=== PATIENT | male | born 1985 | race Caucasian/White ===

== ENCOUNTER 2019-09-18 16:53 | Emergency (ER) | payer SELFPAY ==
[2019-09-18 16:56] VITALS: BP 142/64; PULSE 61; RESP 20; TEMP 36.9; BMI 27.3
--- NOTE | 2019-09-18 17:06 | HMH.COUGH ---
Cough Clinic HPI - History of Present Illness Complaint:: Smokers cough, was sent home from work HPI:: The patient was sent home from work today with a cough. His cough is mild and he attributes it to his smoking. He has had no fever. His cough is been only slightly more productive than his usual. He has had a little bit of GI distress after eating some corndogs earlier today. He has no travel history that would be at risk for Covid 19. His family is well. Home Medications: Home Medications Medication Instructions Recorded Confirmed Type No Known Home Medications 09/18/19 09/18/19 History Allergies/Adverse Reactions: Allergies Allergy/AdvReac Type Severity Reaction Status Date / Time No Known Allergies Allergy Verified 09/18/19 16:55 [facility] Triage - Symptoms Fever History: No Chills: No Myalgia: Yes Nasal Drainage: No Sore Throat: No Productive Cough: Yes Non-productive Cough: No Ear or Sinus Pain: No Joint Pain: No Chest Pain: Yes (tightness) Rash: No Shortness of Breath: Yes Nausea or Vomitting: No Headache: No Abdominal Pain: Yes Diarrhea: Yes - Exposure History Foreign Travel: No ([place]) Direct Contact with COVID-19 Patient: No - Risk Factors Greater than 60 Years Old: No COPD: No Diabetes: No Heart Disease: No Home Oxygen Use: No Chronic Renal Disease: No Chronic Liver Disease: No Neurologic/Neurodevelopmental/intellectual disability: No Other Chronic Diseases: No Current Smoker: Yes Former Smoker: No [facility] History I have reviewed the patient's past medical history: Yes Other Surgeries: Yes: Appendectomy - Social History Smoking Status: Current every day smoker Tobacco Type: cigarettes # Packs/Day (cigarettes): 1 Alcohol Intake: never Occupational Status: employed Family Hx:: No significant family history - Eyes Eyes: Reports system reviewed and no additional complaints, except as docu - ENT Ears, Nose, Mouth, and Throat: Reports system reviewed and no additional complaints, except as docu - Cardiovascular Cardiovascular: Reports system reviewed and no additional complaints, except as docu - Gastrointestinal Gastrointestingal: Denies: abdominal pain, change in bowel habits [facility] Exam - General General appearance: alert, in no apparent distress - Head Head exam: normocephalic - Eye Eye exam: Present: PERRL - ENT ENT exam: Present: normal oropharynx - Chest Chest inspection: Present: normal inspection - Respiratory Respiratory exam: Present: normal lung sounds bilaterally (Slightly diminished). Absent: wheezes - Cardiovascular Cardiovascular exam: Present: regular rate, normal heart sounds - Abdominal Exam Abdominal exam: Present: soft. Absent: tenderness - Neurological Exam Neurological exam: Present: alert, oriented X3 - Skin Skin exam: Present: warm, dry, intact, normal color [facility] MDM Vital Signs: 09/18/19 16:56 Temperature 98.5 F Temperature Source Oral Pulse Rate [Left Brachial] 61 Respiratory Rate 20 Blood Pressure [Left Arm] 142/64 H Blood Pressure Mean [Left Arm] 90 Blood Pressure Source [Left Arm] Automatic Cuff Blood Pressure Position [Left Arm] Sitting Orders (Tests/Meds): ORDERS Category Date Time Status Complete Blood Count Auto Diff Stat Lab 09/18/19 17:04 Ordered Cough Clinic Disposition Clinical Impression: Cough, Tobacco abuse Disposition: Home, Self-Care Additional Instructions: Reassurance. Counseled against smoking. OTC Prilosec suggested for GI distress. Follow-up as needed Referrals: Provider,Referral, [Primary Care Provider] -
[2019-09-18 17:15] LABS: Hematocrit 43.1 % (42.0-52.0); Hemoglobin 14.1 g/dL (14.1-18.0); Mean Corpuscular HGB Conc 32.8 g/dL (31.8-35.4); Mean Corpuscular Volume 91.4 fl (80-94); Mean Platelet Volume 8.6 fl (7.4-10.4); Platelet Count 209 K/mm3 (142-424); Red Blood Count 4.71 M/mm3 (4.60-6.20); Red Cell Distribution Width 13.2 % (11.5-17.5); White Blood Count 7.7 K/mm3 (4.8-10.8)
[2019-09-18 17:16] LABS: Basophils # 0.1 K/mm3 (0-0.2); Basophils % 0.8 % (0.1-2.0); Eosinophils # 0.2 K/mm3 (0.0-0.4); Lymphocytes # 2.5 K/mm3 (0.7-4.5); Monocytes # 0.5 K/mm3 (0.1-1.0); Neutrophils # 4.4 K/mm3 (1.8-7.8); Neutrophils % 57.1 % (37.0-80.0)
[2019-09-18 17:31] VITALS: BP 142/64; PULSE 61; RESP 20; TEMP 36.9; O2SAT 98
== END 2019-09-18 17:31 | disposition home or self-care (01) ==
PROVIDERS: Emergency Provider Family Medicine
DX: R05 Cough (principal); F17.210 Nicotine dependence, cigarettes, uncomplicated; Z90.49 Acquired absence of other specified parts of digestive tract
CPT/HCPCS: 36415; 85025; 99201; 99213

== ENCOUNTER → 2021-06-15 12:00 | Outpatient (CLI) | payer MEDICAID, SELFPAY | PROVIDERS: Visit Provider Nurse Practitioner | DX: U07.1 COVID-19 (principal) | CPT/HCPCS: C9803; U0003; U0005 ==

== ENCOUNTER 2021-09-05 20:28 | Emergency (ER) | payer SELFPAY ==
[2021-09-05 20:29] VITALS: BP 122/72; PULSE 79; RESP 16; TEMP 36.7; O2SAT 98; BMI 28.5
[2021-09-05 21:00] VITALS: BP 115/62; PULSE 64; O2SAT 96
--- NOTE | 2021-09-05 21:00 | CT_ITS ---
PROCEDURE INFORMATION: Exam: CT Abdomen And Pelvis With Contrast Exam date and time: 09/05/2021 9:12 PM Age: 36 years old Clinical indication: Abdominal pain; Additional info: Upper quad abd pain TECHNIQUE: Imaging protocol: Computed tomography of the abdomen and pelvis with contrast. Radiation optimization: All CT scans at this facility use at least one of these dose optimization techniques: automated exposure control; mA and/or kV adjustment per patient size (includes targeted exams where dose is matched to clinical indication); or iterative reconstruction. Contrast material: ISOVUE; Contrast volume: 75 ml; Contrast route: IV; COMPARISON: No relevant prior studies available. FINDINGS: Liver: Mild hepatomegaly. Gallbladder and bile ducts: Normal. Pancreas: Normal. Spleen: Splenic calcifications, compatible with prior granulomatous disease. Mild splenomegaly. Adrenal glands: 10 mm benign left adrenal adenoma. Kidneys and ureters: Normal. Stomach and bowel: Several loops of nondilated, gas and fluid-filled small bowel, which is a nonspecific finding, but can be seen with enteritis. Appendix: No evidence of appendicitis. Intraperitoneal space: Unremarkable. No free air. No significant fluid collection. Vasculature: Unremarkable. No abdominal aortic aneurysm. Lymph nodes: Unremarkable. No enlarged lymph nodes. Urinary bladder: Unremarkable as visualized. Reproductive: Unremarkable as visualized. Bones/joints: No acute abnormality. Soft tissues: Normal. IMPRESSION: Several loops of nondilated, gas and fluid-filled small bowel, which is a nonspecific finding, but can be seen with enteritis. COMMENTS: Consistent with the [employer]'s Incidental Findings Committee white paper (J Am Noemi Radiol 2017): Any incidental adrenal lesion less than or equal to 1 cm is likely benign. No follow-up imaging is recommended for these lesions per consensus recommendations based on imaging criteria. Further lab evaluation could be pursued if warranted based on clinical findings.
[2021-09-05 21:15] LABS: Coronavirus 19, PCR Not Detected (NotDetected); Influenza B, PCR Not Detected (NotDetected); Microscopic, Urine URINE MICROSCOPIC (MICROSCOPIC)
--- NOTE | 2021-09-05 21:18 | HMH.EDURI ---
ED Disposition Clinical Impression: Influenza Disposition: Home, Self-Care Condition on Discharge: Good Instructions: DI for H1N1 Influenza -- Adult Additional Instructions: fluids and use meds and see pcp for follow up Prescriptions: Oseltamivir Phosphate [Tamiflu 75mg Capsule] 75 mg PO BID #10 cap Transmission Status: Pending to [facility] Ondansetron [Zofran 4mg ODT] 4 mg PO TIDP PRN #15 tab PRN Reason: Nausea And Vomiting Transmission Status: Pending to [facility] Referrals: Provider,Referral, [Primary Care Provider] - - Critical Care Critical Care Time: No Attestation: On 09/05/21, the high probability of a clinically significant, sudden or life threatening deterioration of the following system(s) required my full and direct attention, intervention and personal management. The time I documented below is in addition to time spent performing reported procedures but includes the following listed in this critical care notation. Medical Decision Making - Medical Records Medical records reviewed: Yes: I reviewed the patient's medical records. - Gilbert Inquiry Pt receiving controlled substance: No Vital Signs: 09/05/21 20:29 Temperature 98.0 F Temperature Source Oral Pulse Rate [Right Radial] 79 Respiratory Rate 16 Blood Pressure [Right Arm] 122/72 Blood Pressure Mean [Right Arm] 88 Blood Pressure Source [Right Arm] Automatic Cuff Blood Pressure Position [Right Arm] Sitting 02 Sat by Pulse Oximetry 98 Oxygen Delivery Method Room Air - Lab Data Lab results reviewed: Yes: I reviewed the patient's lab results. Lab Results 09/05/21 20:30: Urine Color Yellow, Urine Appearance Clear, Urine pH 6.0, Ur Specific [place] >= 1.030, Urine Protein Negative, Urine Glucose (UA) Negative, Urine Ketones Negative, Urine Blood Negative, Urine Nitrate Negative, Urine Bilirubin Negative, Urine Urobilinogen 0.2, Ur Leukocyte Esterase Negative, Urine WBC Occasional, Urine Bacteria Trace, Urine Mucus 1+ 09/05/21 20:30: WBC 5.0, RBC 4.76, Hgb 14.8, Hct 43.9, MCV 92.2, MCH 31.0, MCHC 33.6, RDW 13.7, Plt Count 217, MPV 8.6, Neut % (Auto) 72.8, Lymph % (Auto) 16.9, Camp % (Auto) 7.3, Eos % (Auto) 1.1, Baso % (Auto) 1.9, Neut # (Auto) 3.6, Lymph # (Auto) 0.9, Camp # (Auto) 0.4, Eos # (Auto) 0.1, Baso # (Auto) 0.1, ESR 7 09/05/21 20:30: Sodium 138, Potassium 3.9, Chloride 109 H, Carbon Dioxide 26, Anion Gap 6.9, BUN 9, Creatinine 0.70, Estimated Creat Clear 198, Estimated GFR 128, Est GFR ( Amer) 155, Glucose 103 H, Calcium 8.6, Total Bilirubin 0.3, AST 32, ALT 48, Alkaline Phosphatase 91, C-Reactive Protein 17.0 H, Total Protein 6.7, Albumin 4.0, Globulin 2.7, Albumin/Globulin Ratio 1.5, Amylase 64, Lipase 72 09/05/21 20:30: SARS-CoV-2 (PCR) Not detected, Influenza A Untype (PCR) Detected A, Influenza Type B (PCR) Not detected Result diagrams: 09/05/21 20:30 09/05/21 20:30 Orders (Tests/Meds): ED MEDICATIONS Generic Name Dose Route Start Last Admin Trade Name Freq PRN Reason Stop Dose Admin Lactated Ringer's 1,000 mls @ 999 mls/hr 09/05/21 21:00 09/05/21 21:37 Lactated Ringer's 1000 Ml Bag IV 09/05/21 22:00 999 mls/hr .Q1H1M KAREN Administration Lactated Ringer's 1,000 mls @ 999 mls/hr 09/05/21 21:45 09/05/21 22:02 Lactated Ringer's 1000 Ml Bag IV 09/05/21 22:45 999 mls/hr .Q1H1M KAREN Administration Sodium Chloride 8 ml 09/05/21 20:59 Sodium Chloride 0.9% 10ml Vial IV 10/05/21 20:58 NEEDED PRN dilute pepcid Discontinued Medications Generic Name Dose Route Start Last Admin Trade Name Freq PRN Reason Stop Dose Admin Famotidine 20 mg 09/05/21 20:59 09/05/21 21:37 Famotidine 20mg/2ml Vial IV 09/05/21 21:00 20 mg ONCE ONE Administration Iopamidol 75 ml 09/05/21 21:16 09/05/21 21:17 Iopamidol-370 (76%);100ml Bottle IV 09/05/21 21:17 75 ml ONCE ONE Administration Metoclopramide HCl 10 mg 09/05/21 20:59
[2021-09-05 21:19] LABS: Appearance,Urine CLEAR (Clear); Basophils # 0.1 K/mm3 (0-0.2); Basophils % 1.9 % (0.1-2.0); Bilirubin,Urine Negative (Negative); Blood, Urine Negative (Negative); Color,Urine YELLOW (Yellow); Eosinophils # 0.1 K/mm3 (0.0-0.4); Eosinophils % 1.1 % (0.1-12.0); Glucose,Urine (UA) Negative (Negative); Hematocrit 43.9 % (42.0-52.0); Hemoglobin 14.8 g/dL (14.1-18.0); Ketones,Urine Negative (Negative); Leukocyte Esterase,Urine Negative (Negative); Lymphocytes # 0.9 K/mm3 (0.7-4.5); Lymphocytes % 16.9 % (10-50); Mean Corpuscular HGB Conc 33.6 g/dL (31.8-35.4); Mean Corpuscular Volume 92.2 fl (80-94); Mean Platelet Volume 8.6 fl (7.4-10.4); Monocytes # 0.4 K/mm3 (0.1-1.0); Monocytes % 7.3 % (1.7-9.3); Neutrophils # 3.6 K/mm3 (1.8-7.8); Neutrophils % 72.8 % (37.0-80.0); Nitrate,Urine Negative (Negative); Platelet Count 217 K/mm3 (142-424); Protein,Urine Negative (Negative); Red Blood Count 4.76 M/mm3 (4.60-6.20); Red Cell Distribution Width 13.7 % (11.5-17.5); Specific Gravity, Urine >= 1.030 (1.005-1.030); Urobilinogen,Urine 0.2 EU/dl (0.2)
[2021-09-05 21:22] LABS: Alanine Aminotransferase 48 U/L (12-78); Albumin/Globulin Ratio 1.5 (1.1-1.8); Alkaline Phosphatase 91 U/L (38-126); Amylase 64 U/L (30-110); Anion Gap 6.9 mEq/L (5-15); Aspartate Amino Transferase 32 U/L (17-59); Bilirubin,Total 0.3 mg/dl (0.2-1.3); Blood Urea Nitrogen 9 mg/dl (9-20); Calcium 8.6 mg/dl (8.4-10.2); Carbon Dioxide 26 mmol/L (22.0-30.0); Chloride 109 mmol/L (98-107); Creatinine Clearance Estimated 198 mL/min (50-200); Estimated Glomerular Filt Rate 128 ml/min (>60); GFR (African American) 155 ML/MIN (>60); Globulin 2.7 g/dL (1.3-3.2); Glucose 103 mg/dl (74-100); Lipase 72 U/L (23-300); Potassium 3.9 mmoL/L (3.5-5.1); Sodium 138 mmol/L (136-145); Total Protein,Serum 6.7 g/dl (6.3-8.2)
[2021-09-05 21:44] LABS: Bacteria,Urine Trace /lpf; Mucus,Urine 1+ /lpf; WBC,Urine Occasional #/hpf (0-3)
[2021-09-05 21:50] LABS: Influenza A, PCR Detected (NotDetected)
[2021-09-05 21:51] LABS: Erythrocyte Sedimentation Rate 7 mm/hr (0-15)
[2021-09-05 22:03] VITALS: BP 100/61; PULSE 77; O2SAT 100
[2021-09-05 22:28] VITALS: BP 111/54; PULSE 66; PULSE 76; RESP 12; TEMP 36.6; O2SAT 98
== END 2021-09-05 23:04 | disposition home or self-care (01) ==
PROVIDERS: Emergency Provider Emergency Medicine
DX: J10.1 Influenza due to other identified influenza virus with other respiratory manifestations (principal); F17.210 Nicotine dependence, cigarettes, uncomplicated; Z20.822 Contact with and (suspected) exposure to COVID-19
CPT/HCPCS: 74177; 80053; 81001; 82150; 83690; 85025; 85651; 86140; 96361; 96365; 96367; 96374; 96375; 99285; C9803; Q9967; U0003; U0005

== ENCOUNTER 2021-10-07 19:09 | Emergency (ER) | payer SELFPAY ==
[2021-10-07 19:21] VITALS: BP 120/68; PULSE 68; RESP 21; TEMP 36.8; O2SAT 97; BMI 25.1
[2021-10-07 20:18] VITALS: BP 120/68; PULSE 68; RESP 21; TEMP 36.8; O2SAT 97
--- NOTE | 2021-10-07 20:36 | HMH.EDUTC ---
[facility] Disposition Clinical Impression: Otitis media Qualifiers: Otitis media type: unspecified Laterality: left Qualified Code(s): H66.92 - Otitis media, unspecified, left ear Disposition: Home, Self-Care Condition on Discharge: Good Instructions: Vertigo, Middle Ear Infection, DI for Fatigue Additional Instructions: Take medication as prescribed Make sure to drink plenty of gatoraid and pedialyte to help replace lost fluids from sweating Return if needed Straight to ER if any life threatening symptoms Follow up with your Family Doctor if no improvement Prescriptions: Meclizine HCl [Meclizine 25mg Tab] 25 mg PO Q8HP PRN #10 tab PRN Reason: Dizziness Transmission Status: Pending to [facility] Amoxicillin [Amoxicillin 875MG Tab] 875 mg PO Q12H #20 tab Transmission Status: Pending to [facility] methylPREDNISolone [Medrol 4mg tab] 4 mg PO DIRECTED #21 tab Transmission Status: Pending to [facility] Referrals: Provider,Referral, MD [Primary Care Provider] - As needed Forms: Work/School Release Time of Disposition: 20:46 Medical Decision Making - Gilbert Inquiry Pt receiving controlled substance: No Gilbert was queried for this patient: No Vital Signs: 10/07/21 19:21 10/07/21 20:18 Temperature 98.3 F 98.3 F Temperature Source Oral Pulse Rate 68 Pulse Rate [Right Brachial] 68 Respiratory Rate 21 21 Blood Pressure 120/68 Blood Pressure [Right Arm] 120/68 Blood Pressure Mean [Right Arm] 85 Blood Pressure Source [Right Arm] Automatic Cuff Blood Pressure Position [Right Arm] Sitting 02 Sat by Pulse Oximetry 97 Oxygen Delivery Method Room Air [facility] HPI - General Stated complaint: light headed Time Seen by Provider: 10/07/21 20:36 Mode of Arrival: Ambulatory Source of Information: Patient Limitations: No Limitations Description of Symptoms (Recalled from Triage Doc. by RN): PATIENT C/O DIZZINESS, DECREASED ENERGY, AND SOA HEENT Symptoms (Recalled from RN notes): No Resp Symptoms (Recalled from RN notes): Yes Skin Symptoms (Recalled from RN notes): No MS Symptoms (Recalled from RN notes): No Functional Status (Recalled from RN notes): WNL - History of Present Illness Provider Complaint: Patient states that he has been having ear pain and pressure State that he was at work last night and got hot and said that he felt dizzy, hot and flush and had to sit down State that he went home and felt better today when he woke up but his ear was still throbbing and felt full so he came in - Related Data Previous Rx's Medication Instructions Recorded Amoxicillin [Amoxicillin 875MG 875 mg PO Q12H #20 tab 10/07/21 Tab] Meclizine HCl [Meclizine 25mg Tab] 25 mg PO Q8HP PRN #10 tab 10/07/21 methylPREDNISolone [Medrol 4mg 4 mg PO DIRECTED #21 tab 10/07/21 tab] Allergies Allergy/AdvReac Type Severity Reaction Status Date / Time No Known Allergies Allergy Verified 09/18/19 16:55 - Worker's Comp Is this a Worker's Comp case?: No [facility] History - Hepatitis A Screen Attestation statement:: This patient has been screened for Hepatitis A risk factors. I have reviewed the patient's past medical history: Yes Other Surgeries: Yes: Appendectomy - Social History Smoking Status: Current every day smoker Tobacco Type: cigarettes # Packs/Day (cigarettes): 1 Alcohol Intake: never Occupational Status: other Family Hx:: No significant family history ROS Obtained: Yes All systems reviewed & no additional complaints, Yes Systems reviewed as appropriate & no additional complaints - Constitutional Constitutional: Reports system reviewed and no additional complaints, except as docu, Reports fatigue - ENT Ears, Nose, Mouth, and Throat: Reports system reviewed and no additional complaints, except as docu, Reports dizziness, Reports otalgia - Cardiovascular Cardiovascular: Reports system reviewed and no additional complaints, except as
== END 2021-10-07 21:08 | disposition home or self-care (01) ==
PROVIDERS: Emergency Provider Nurse Practitioner
DX: H66.92 Otitis media, unspecified, left ear (principal); F17.210 Nicotine dependence, cigarettes, uncomplicated
CPT/HCPCS: 99212; G0463

== ENCOUNTER 2021-10-19 21:33 | Emergency (ER) | payer OTHER, SELFPAY ==
[2021-10-19 21:34] VITALS: BP 155/77; PULSE 82; RESP 17; TEMP 37.1; O2SAT 98; BMI 26.4
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
[2021-10-19 23:45] VITALS: BP 138/78; PULSE 60; RESP 18; TEMP 36.7; O2SAT 98
== END 2021-10-19 23:50 | disposition home or self-care (01) ==
PROVIDERS: Emergency Provider Emergency Medicine
DX: T22.611A Corrosion of second degree of right forearm, initial encounter (principal); X08.8XXA Exposure to other specified smoke, fire and flames, initial encounter; Y92.63 Factory as the place of occurrence of the external cause; Y99.0 Civilian activity done for income or pay
CPT/HCPCS: 99283

== ENCOUNTER 2022-04-05 09:28 | Emergency (ER) | payer OTHER, SELFPAY ==
[2022-04-05 09:30] VITALS: BP 137/79; PULSE 83; RESP 17; TEMP 36.8; O2SAT 99; BMI 28.0
--- NOTE | 2022-04-05 09:42 | EXP.UTC ---
Discharge Plan Disposition Patient Disposition: Home, Self-Care Condition: Good Prescriptions Prescriptions: New amoxicillin [amoxicillin] 875 mg tablet 875 mg PO Q12H Qty: 20 0RF benzonatate [benzonatate] 100 mg capsule 100 mg PO TIDP PRN (Reason: Cough) Qty: 30 0RF methylprednisolone 4 mg Tablets,Dose Pack 4 mg PO DIRECTED Qty: 21 0RF No Action methylprednisolone 4 MG tablet 4 mg PO DIRECTED Qty: 21 0RF Rx Instructions: Take as directed on package instructions amoxicillin 875 MG tablet 875 mg PO Q12H Qty: 20 0RF meclizine 25 MG tablet,chewable 25 mg PO Q8HP PRN (Reason: Dizziness) Qty: 10 0RF Referrals Follow up/Referrals: Provider,Referral, MD [Primary Care Provider] - See instructions Activity Restrictions/Add. Instructions Additional Instructions/Restrictions: Drink plenty of fluids. Take tylenol or ibuprofen for pain or fever. Take the medications as directed. Follow up with your regular doctor. GO TO THE ER FOR ANY WORSENING SYMPTOMS Clinical Impressions Clinical Impression: Otitis media, Sinusitis Stand Alone Forms Stand Alone Forms: Work/School Release Instructions Patient Instructions: Sinusitis, Middle Ear Infection, DI for Sinusitis Discharge ED Provider: Dima Malagon [facility] General Stated complaint: Vomitting, light headed Time Seen by Provider: 04/05/22 09:42 History of Present Illness Provider Complaint: He states that for the past 2 days he has had intermittent dizziness when turning his head or leaning over. He has had bilateral ear pain at times. He is having sinus congestion and bilateral ear pain. Related Data Previous Rx's Medication Instructions Recorded amoxicillin 875 mg tablet 875 mg PO Q12H #20 tabs 10/07/21 meclizine 25 mg chewable tablet 25 mg PO Q8HP PRN Dizziness #10 10/07/21 tabs methylprednisolone 4 mg tablet 4 mg PO DIRECTED #21 tabs 10/07/21 amoxicillin 875 mg tablet 875 mg PO Q12H #20 tabs 04/05/22 benzonatate 100 mg capsule 100 mg PO TIDP PRN Cough #30 caps 04/05/22 methylprednisolone 4 mg tablets in 4 mg PO DIRECTED #21 tabs 04/05/22 a dose pack Allergies Allergy/AdvReac Type Severity Reaction Status Date / Time No Known Allergies [facility]ergy Ver[facility] 09/18[facility]19 16:55 [facility] Social History Smoking Status: Current every day smoker tobacco type: cigarettes packs per day: 1 alcohol intake: never current occupational status: other Travel in the last 8 weeks: None ROS Obtained: Yes All systems reviewed & no additional complaints except as documented Constitutional Constitutional: Denies chills, Reports fever(s) and Reports poor appetite Eyes Eyes: Denies eye discharge ENT Ears, Nose, Mouth, and Throat: Denies ear discharge, Reports otalgia, Denies hearing loss, Denies sinus pain and Reports sore throat Cardiovascular Cardiovascular: Denies chest pain and Denies dyspnea Respiratory Respiratory: Denies chest congestion, Reports cough and Denies dyspnea Gastrointestinal Gastrointestingal: Denies abdominal pain, diarrhea, nausea or vomiting Musculoskeletal Musculoskeletal: Denies arthralgias Integumentary/Breasts Skin/Breast: Denies rash Physical Exam General General appearance: alert and in no apparent distress Head Head exam: atraumatic, normocephalic and normal inspection Eye Eye exam: Present normal appearance; Absent PERRL or EOMI ENT ENT exam: Present mucous membranes moist and normal external ear exam Expanded ENT Exam TM/Canal exam: Bilateral TM: erythema, bulging and effusion Nose exam: Absent sinus tenderness Nasal speculum exam: Bilateral: normal Mouth exam: Present normal external inspection and other; Absent drooling Teeth exam: Present normal inspection Throat exam: Present tonsillar erythema and tonsillomegaly Neck Neck exam: Present normal inspection, full ROM and trachea midline; Absent tenderness, meni
[2022-04-05 09:55] LABS: UTC Influenza A Antigen Negative (Negative); UTC Strep Screen (Rapid) Negative (Negative)
[2022-04-05 09:56] LABS: UTC Influenza B Antigen Negative (Negative)
[2022-04-05 10:13] VITALS: BP 130/78; PULSE 80; RESP 18; TEMP 36.8; O2SAT 99
== END 2022-04-05 10:14 | disposition home or self-care (01) ==
PROVIDERS: Emergency Provider Nurse Practitioner Family
DX: H66.90 Otitis media, unspecified, unspecified ear (principal); J32.9 Chronic sinusitis, unspecified
CPT/HCPCS: 87804; 87880; 99212; G0463

== ENCOUNTER 2022-06-23 14:34 | Emergency (ER) | payer OTHER, SELFPAY ==
--- NOTE | 2022-06-23 14:39 | EXP.UTC ---
Discharge Plan Disposition Patient Disposition: Home, Self-Care Condition: Good Prescriptions Prescriptions: New ibuprofen [IBU] 800 mg tablet 800 mg PO Q8HP PRN (Reason: Moderate Pain) Qty: 30 0RF Referrals Follow up/Referrals: Dragan Montenegro JR, MD [Physician] - See instructions Provider,MD Katherine [Primary Care Provider] - See instructions Activity Restrictions/Add. Instructions Additional Instructions/Restrictions: Rest the extremity, Wear the ariela wrap for compression, Elevate the extremity as tolerated while you are resting. Take ibuprofen for pain. I sent in a prescription to your pharmacy. Follow up with Dr. Montenegro (orthopedics). I put in a referral but you need to call his office and schedule an appointment. Follow up with your regular doctor. GO TO THE ER FOR ANY WORSENING SYMPTOMS Clinical Impressions Clinical Impression: Left knee pain Stand Alone Forms Stand Alone Forms: Work/School Release Instructions Patient Instructions: DI for Knee Pain Discharge ED Provider: Dima Malagon [facility] General Stated complaint: LT knee pain Time Seen by Provider: 06/23/22 14:39 History of Present Illness Provider Complaint: He states that he has had left knee pain for the past 3 days. He states that he stepped down off of something and the knee kind of twisted and then his pain began. Related Data Previous Rx's Medication Instructions Recorded ibuprofen 800 mg tablet (IBU) 800 mg PO Q8HP PRN Moderate Pain 06/23/22 #30 tabs Allergies Allergy/AdvReac Type Severity Reaction Status Date / Time No Known Allergies Allergy Verified 09/18/19 16:55 [facility] Disclaimer: The information contained in this section may have been updated after the patient was seen, as this information can be updated by other users. Surgical History History of appendectomy Social History Smoking Status: Current every day smoker tobacco type: cigarettes packs per day: 1 alcohol intake: never current occupational status: other Travel in the last 8 weeks: None ROS Obtained: Yes All systems reviewed & no additional complaints except as documented Constitutional Constitutional: Denies chills and Denies fever(s) Musculoskeletal Musculoskeletal: Reports as per HPI Integumentary/Breasts Skin/Breast: Denies redness, Denies rash and Denies wounds Neurologic Neurologic: Denies paresthesias Physical Exam General General appearance: alert and in no apparent distress Head Head exam: atraumatic, normocephalic and normal inspection Eye Eye exam: Present normal appearance, PERRL and EOMI ENT ENT exam: Present normal exam, normal oropharynx, mucous membranes moist, TM's normal bilaterally and normal external ear exam Neck Neck exam: Present normal inspection, full ROM and trachea midline; Absent meningismus or lymphadenopathy Chest Chest inspection: Present normal inspection and symmetric chest wall rise; Absent tenderness Respiratory Respiratory exam: Present normal lung sounds bilaterally; Absent respiratory distress Cardiovascular Cardiovascular exam: Present regular rate and normal rhythm; Absent JVD Abdominal Exam Abdominal exam: Present soft and normal bowel sounds; Absent distention, tenderness or guarding Extremities Exam Extremities exam: Present normal capillary refill; Absent calf tenderness Expanded Lower Extremity Exam Left: Hip/Pelvis exam: Present normal inspection and full ROM; Absent tenderness Upper leg exam: Present normal inspection and full ROM; Absent tenderness Knee exam: Present full ROM, tenderness, swelling and knee extension intact; Absent abrasion, laceration, ecchymosis, deformity, crepitus, dislocation, erythema, effusion, anterior drawer sign, posterior draw sign, pain with valgus, laxity with valgus, pain with varus or laxity with varus Lowe
[2022-06-23 14:40] VITALS: BP 135/83; PULSE 67; RESP 20; TEMP 36.6; O2SAT 96; BMI 25.7
--- NOTE | 2022-06-23 14:45 | XR_ITS ---
FINAL REPORT CLINICAL HISTORY: pain for months. no injury or trauma. FINDINGS: LEFT KNEE: Four views of the left knee were obtained. There is no acute fracture or dislocation. Visualized joint spaces are normally aligned. There is no joint effusion. Soft tissues are unremarkable. IMPRESSION: No acute bony abnormality. Reviewed, Interpreted and Dictated by Sahil Dove III, MD Transcribed by Gris Corbin Authenticated and [facility]
[2022-06-23 15:07] VITALS: BP 135/83; PULSE 67; RESP 20; TEMP 36.6; O2SAT 96
== END 2022-06-23 16:07 | disposition home or self-care (01) ==
PROVIDERS: Emergency Provider Nurse Practitioner Family
DX: M25.562 Pain in left knee (principal); W18.40XA Slipping, tripping and stumbling without falling, unspecified, initial encounter
CPT/HCPCS: 73562; 99212; G0463

== ENCOUNTER 2023-03-02 11:36 | Emergency (ER) | payer OTHER, SELFPAY ==
--- NOTE | 2023-03-02 12:16 | EXP.UTC ---
Discharge Plan Disposition Patient Disposition: Home, Self-Care Condition: Good Prescriptions Prescriptions: New amoxicillin 875 mg tablet 875 mg PO BID Qty: 20 0RF meclizine 12.5 mg tablet 12.5 mg PO TID PRN (Reason: dizziness/nausea) Qty: 30 0RF No Action ibuprofen [IBU] 800 mg tablet 800 mg PO Q8HP PRN (Reason: Moderate Pain) Qty: 30 0RF Referrals Follow up/Referrals: Provider,Referral, MD [Primary Care Provider] - See instructions Clinical Impressions Clinical Impression: Otitis media, Vertigo Stand Alone Forms Stand Alone Forms: Work/School Release Instructions Patient Instructions: DI for Otitis Media (Middle Ear Infection)-Child Discharge ED Provider: Aubree Obando [facility] [place] HPI General Stated complaint: nausea, dizziness, diarrhea ear pain Time Seen by Provider: 03/02/23 12:37 History of Present Illness Provider Complaint: Woke up early this am with nausea, dizziness, feels off balance. Right ear pain. Has taken Zofran, Pepto so has had no vomiting or diarrhea but still feels off. Has not eaten today. No fever. Onset (ago): hour(s) (6) Relieving factors: none Exacerbating factors: none Associated symptoms: malaise Treatments prior to arrival: other (Zofran, Pepto) Related Data Previous Rx's Medication Instructions Recorded ibuprofen 800 mg tablet (IBU) 800 mg PO Q8HP PRN Moderate Pain 06/23/22 #30 tabs amoxicillin 875 mg tablet 875 mg PO BID #20 tabs 03/02/23 meclizine 12.5 mg tablet 12.5 mg PO TID PRN 03/02/23 dizziness/nausea #30 tabs Allergies Allergy/AdvReac Type Severity Reaction Status Date / Time No Known Allergies Allergy Verified 09/18/19 16:55 [facility] Disclaimer: The information contained in this section may have been updated after the patient was seen, as this information can be updated by other users. Surgical History History of appendectomy Social History Smoking Status: Current every day smoker tobacco type: cigarettes packs per day: 1 alcohol intake: never current occupational status: other Travel in the last 8 weeks: None ROS Obtained: Yes All systems reviewed & no additional complaints except as documented Constitutional Constitutional: Reports fatigue and Reports malaise ENT Ears, Nose, Mouth, and Throat: Reports dizziness Gastrointestinal Gastrointestingal: Reports nausea Neurologic Neurologic: Reports dizziness Endocrine Endocrine: Reports fatigue Physical Exam General General appearance: alert and in no apparent distress Head Head exam: atraumatic, normocephalic and normal inspection Eye Eye exam: Present normal appearance, PERRL and EOMI ENT ENT exam: Present normal exam, normal oropharynx, mucous membranes moist, TM's normal bilaterally and normal external ear exam Expanded ENT Exam TM/Canal exam: Right TM: erythema Neck Neck exam: Present normal inspection, full ROM and trachea midline; Absent meningismus or lymphadenopathy Chest Chest inspection: Present normal inspection and symmetric chest wall rise; Absent tenderness Respiratory Respiratory exam: Present normal lung sounds bilaterally; Absent respiratory distress Cardiovascular Cardiovascular exam: Present regular rate and normal rhythm; Absent JVD Abdominal Exam Abdominal exam: Present soft and normal bowel sounds; Absent distention, tenderness or guarding Extremities Exam Extremities exam: Present normal capillary refill; Absent calf tenderness Expanded Lower Extremity Exam Left: Hip/Pelvis exam: Present normal inspection and full ROM; Absent tenderness Upper leg exam: Present normal inspection and full ROM; Absent tenderness Knee exam: Present full ROM, tenderness, swelling and knee extension intact; Absent abrasion, laceration, ecchymosis, deformity, crepitus, dislocation, erythema, effusion, anterior drawer sign, posterior draw
[2023-03-02 12:20] VITALS: BP 112/72; PULSE 81; RESP 18; TEMP 36.5; O2SAT 100; BMI 30.9
[2023-03-02 12:58] LABS: UTC Strep Screen (Rapid) Negative (Negative)
[2023-03-02 13:00] VITALS: BP 112/72; PULSE 81; RESP 18; TEMP 36.5; O2SAT 100
== END 2023-03-02 13:06 | disposition home or self-care (01) ==
PROVIDERS: Emergency Provider Physician Assistant
DX: H66.91 Otitis media, unspecified, right ear (principal); R42 Dizziness and giddiness; F17.210 Nicotine dependence, cigarettes, uncomplicated
CPT/HCPCS: 87880; 99212; 99214; G0463

== ENCOUNTER 2023-03-19 15:16 | Emergency (ER) | payer OTHER, SELFPAY ==
[2023-03-19 15:30] VITALS: BP 117/83; PULSE 91; RESP 18; TEMP 36.8; O2SAT 99; BMI 28.8
--- NOTE | 2023-03-19 15:39 | EXP.UTC ---
Discharge Plan Disposition Patient Disposition: Home, Self-Care Condition: Good Prescriptions Prescriptions: New dicyclomine 10 mg capsule 10 mg PO TID PRN (Reason: abdominal pain/cramping) Qty: 15 0RF ondansetron 4 mg tablet,disintegrating 4 mg PO Q8H PRN (Reason: nausea and vomiting) Qty: 10 0RF Referrals Follow up/Referrals: Provider,Referral, MD [Primary Care Provider] - See instructions Activity Restrictions/Add. Instructions Additional Instructions/Restrictions: Drink extra fluids with and between meals. If you have difficulty drinking, try very small amounts of water or suck on ice chips. ? Avoid fruit juices, as these do not replace minerals and can actually increase diarrhea. ? Children and adults can use sports drinks to replenish electrolytes. Younger children and infants should use products formulated for children, like oral rehydration solutions. ? Eat food in small amounts and let your stomach recover. ? Get lots of rest. You may feel tired or weak. ? No greasy or fried foods for the next 24-48 hours BRAT diet Bananas Rice Apples and [place] ? Make sure to drink plenty of liquids ? Return if needed ? Straight to ER if any life threatening symptoms ? Zofran as prescribed ? You was given an outpatient order for diarrhea panel, please collect specimen and bring back to outpatient lab then call back to the [facility] or follow up with family doctor for results ? Follow up with family doctor in the next 48-72 hours if no improvement or any worsening of symptoms Clinical Impressions Clinical Impression: Viral syndrome Stand Alone Forms Stand Alone Forms: Work/School Release Instructions Patient Instructions: Diarrhea, Nausea and Vomiting-Adult Discharge ED Provider: Laney Serrano [facility] [place] HPI General Stated complaint: V&D Mode of Arrival: Ambulatory Source of Information: Patient Limitations: No Limitations Time Seen by Provider: 03/19/23 15:39 Description of Symptoms (Recalled from Triage Doc. by RN): PATIENT C/O STOMACH ACHE, VOMITING, AND DIARRHEA SINCE THIS MORNING HEENT Symptoms (Recalled from RN notes): No Resp Symptoms (Recalled from RN notes): No Skin Symptoms (Recalled from RN notes): No MS Symptoms (Recalled from RN notes): No Functional Status (Recalled from RN notes): WNL History of Present Illness Provider Complaint: Patient states that he has been having cramping, N/V/D since this morning States that he has been drinking ok but not tried to eat anything due to the nausea States that he was unable to work today due the N/V/D so this evening when he was still having the N/V he came in to get checked Related Data Previous Rx's Medication Instructions Recorded dicyclomine 10 mg capsule 10 mg PO TID PRN abdominal 03/19/23 pain/cramping #15 caps ondansetron 4 mg disintegrating 4 mg PO Q8H PRN nausea and 03/19/23 tablet vomiting #10 tabs Allergies Allergy/AdvReac Type Severity Reaction Status Date / Time No Known Allergies Allergy Verified 09/18/19 16:55 Worker's Comp Is this a Worker's Comp case?: [facility] Disclaimer: The information contained in this section may have been updated after the patient was seen, as this information can be updated by other users. Surgical History History of appendectomy Social History Smoking Status: Current every day smoker tobacco type: cigarettes packs per day: 1 alcohol intake: never current occupational status: other Travel in the last 8 weeks: None ROS Obtained: Yes All systems reviewed & no additional complaints except as documented and Yes Systems reviewed as appropriate & no additional complaints except as documented Constitutional Constitutional: Reports system reviewed and no additional complaints, except as docum
[2023-03-19 15:54] VITALS: BP 117/83; PULSE 91; RESP 18; TEMP 36.8; O2SAT 99
== END 2023-03-19 16:12 | disposition home or self-care (01) ==
PROVIDERS: Emergency Provider Nurse Practitioner
DX: R11.2 Nausea with vomiting, unspecified (principal); R19.7 Diarrhea, unspecified; B34.9 Viral infection, unspecified; F17.210 Nicotine dependence, cigarettes, uncomplicated
CPT/HCPCS: 87635; 99212; 99214; G0463

== ENCOUNTER 2024-03-19 17:35 | Emergency (ER) | payer OTHER, SELFPAY ==
[2024-03-19 17:49] VITALS: BP 128/86; PULSE 85; RESP 18; TEMP 36.7; O2SAT 97; BMI 27.9
--- NOTE | 2024-03-19 17:49 | EXP.UTC ---
Discharge Plan Disposition Patient Disposition: Home, Self-Care Condition: Good Prescriptions Prescriptions: New methylprednisolone 4 mg Tablets,Dose Pack 4 mg PO DIRECTED 6 Days Qty: 21 0RF Rx Instructions: Take 1 pack as directed for 6 days fwyrauvprbdgwde-[id number] [Bromfed DM] 2-30-10 mg/5 mL Syrup 5 ml PO Q6H PRN (Reason: Cough) Qty: 240 0RF amoxicillin-pot clavulanate 875-125 mg Tablet 1 tab PO Q12H Qty: 20 0RF Referrals Follow up/Referrals: Provider,Referral, MD [Primary Care Provider] - See instructions Activity Restrictions/Add. Instructions Additional Instructions/Restrictions: Drink plenty of fluids. Take tylenol or ibuprofen for pain or fever. Take the medications as directed. Follow up with your regular doctor. GO TO THE ER FOR ANY WORSENING SYMPTOMS Clinical Impressions Clinical Impression: Otitis media, Benign paroxysmal positional vertigo Instructions Patient Instructions: Middle Ear Infection, Benign Paroxysmal Positional Vertigo Print Language Print Language: Upper Sorbian Discharge ED Provider: Dima Malagon [facility] General Stated complaint: ear pain, vertigo Time Seen by Provider: 03/19/24 17:49 Related Data Previous Rx's ?Medication ?Instructions ?Recorded amoxicillin 875 mg-potassium 1 tab PO Q12H #20 tabs 03/19/24 clavulanate 125 mg tablet bfpeqiqzcjephzv-ilmvgzuilsbgavc-VJ 5 ml PO Q6H PRN Cough #240 mL 03/19/24 2 mg-30 mg-10 mg/5 mL oral syrup (Bromfed DM) methylprednisolone 4 mg tablets in 4 mg PO DIRECTED 6 days #21 tabs 03/19/24 a dose pack Allergies Allergy/AdvReac Type Severity Reaction Status Date / Time No Known Allergies Allergy Verified 09/18/19 16:55 [facility] Disclaimer: The information contained in this section may have been updated after the patient was seen, as this information can be updated by other users. Surgical History History of appendectomy Social History Smoking Status: Current every day smoker tobacco type: cigarettes packs per day: 1 alcohol intake: never current occupational status: other Travel in the last 8 weeks: None ROS Obtained: Yes All systems reviewed & no additional complaints except as documented Constitutional Constitutional: Denies chills, Reports fever(s) and Reports poor appetite Eyes Eyes: Denies eye discharge ENT Ears, Nose, Mouth, and Throat: Denies ear discharge, Reports otalgia, Denies hearing loss, Denies sinus pain and Reports sore throat Cardiovascular Cardiovascular: Denies chest pain and Denies dyspnea Respiratory Respiratory: Denies chest congestion, Reports cough and Denies dyspnea Gastrointestinal Gastrointestingal: Denies abdominal pain, diarrhea, nausea or vomiting Musculoskeletal Musculoskeletal: Denies arthralgias Integumentary/Breasts Skin/Breast: Denies rash Physical Exam General General appearance: alert and in no apparent distress Head Head exam: atraumatic, normocephalic and normal inspection Eye Eye exam: Present normal appearance; Absent PERRL or EOMI ENT ENT exam: Present mucous membranes moist and normal external ear exam Expanded ENT Exam TM/Canal exam: Bilateral TM: erythema, bulging and effusion Nose exam: Absent sinus tenderness Nasal speculum exam: Bilateral: normal Mouth exam: Present normal external inspection and other; Absent drooling Teeth exam: Present normal inspection Throat exam: Present tonsillar erythema and tonsillomegaly Neck Neck exam: Present normal inspection, full ROM and trachea midline; Absent tenderness, meningismus or lymphadenopathy Chest Chest inspection: Present normal inspection and symmetric chest wall rise; Absent tenderness Respiratory Respiratory exam: Present normal lung sounds bilaterally; Absent respiratory distress, wheezes or stridor Cardiovascular Cardiovascular exam: Present regular rate, normal rhythm and normal heart sounds; Absent tachycardia or irregular rhythm Abdominal Exam Abdominal exam: Present soft and normal bowel sounds; Absent distention, tenderness, guarding, rebound or rigidity Extremities Exam Extremities exam: Present normal inspection and normal capillary refill; Absent tenderness, joint swelling or calf tenderness Back Exam Back exam: Present normal inspection and full ROM; Absent tenderness, CVA tenderness (R) or CVA tenderness (L) Neurological Exam Neurological exam: Present alert, oriented X3, CN II-XII intact, normal gait and reflexes normal; Absent motor sensory deficit Psychiatric Psychiatric exam: Present normal affect and normal mood Skin Skin exam: Present warm, dry, intact and normal color Lymphatic Lymphatic Findings: no adenopathy Medical Decision Making Medical Records Medical records reviewed: No I reviewed the patient's medical records. Screening: Per USPSTF and CDC recommendations, given the prevalence of disease in our region, it is our hospital?s policy to screen for HIV and viral Hepatitis for all patients aged 18 and over and those with ongoing risk factors. Gilbert Inquiry Pt receiving controlled substance: No Lab Data Lab results reviewed: Yes I reviewed the patient's lab results.
[2024-03-19 18:22] VITALS: BP 128/86; PULSE 85; RESP 18; TEMP 36.7
== END 2024-03-19 18:30 | disposition home or self-care (01) ==
PROVIDERS: Emergency Provider Nurse Practitioner Family
DX: H66.93 Otitis media, unspecified, bilateral (principal); H81.10 Benign paroxysmal vertigo, unspecified ear
CPT/HCPCS: 99212; G0381

== ENCOUNTER 2024-04-05 09:37 | Emergency (ER) | payer OTHER, SELFPAY ==
[2024-04-05 09:50] VITALS: BP 111/75; PULSE 60; RESP 20; TEMP 36.7; O2SAT 98; BMI 27.1
--- NOTE | 2024-04-05 10:00 | ED_ITS ---
Discharge Plan Disposition Patient Disposition: Home, Self-Care Condition: Good Prescriptions Prescriptions: New meclizine 25 mg tablet 25 mg PO TID PRN (Reason: dizziness) Qty: 15 0RF fluticasone propionate [Flonase Allergy Relief] 50 mcg/actuation spray ,suspension 2 spray intranasal DAILY Qty: 16 0RF Rx Instructions: administer into each nostril daily methylprednisolone [Medrol (Shane)] 4 mg tablets,dose pack See Rx Instructions .Route .COMPLEX 6 Days Qty: 21 0RF Rx Instructions: taper pack; Referrals Follow up/Referrals: Kyleigh Cruz APRN [Nurse Practitioner] - See instructions Provider,Referral, [Primary Care Provider] - See instructions Activity Restrictions/Add. Instructions Additional Instructions/Restrictions: Take medication as prescribed Follow up with ENT if no improvement or worsening of pain and pressure in ears Follow up with your Family Doctor if no improvement Return if needed Clinical Impressions Clinical Impression: Eustachian tube dysfunction Qualifiers: Laterality: bilateral Qualified Code(s): H69.93 - Unspecified Eustachian tube disorder, bilateral Instructions Patient Instructions: Meclizine, Methylprednisolone, Fluticasone Nasal [place] Print Language Print Language: Tajik Discharge ED Provider: Laney Serrano [facility] General Stated complaint: bilateral ear pain Mode of Arrival: Ambulatory Source of Information: Patient Limitations: No Limitations Time Seen by Provider: 04/05/24 10:00 Description of Symptoms (Recalled from Triage Doc. by RN): PATIENT C/O BILATERAL EAR PAIN AND DIZZINESS HEENT Symptoms (Recalled from RN notes): Yes Resp Symptoms (Recalled from RN notes): No Skin Symptoms (Recalled from RN notes): No MS Symptoms (Recalled from RN notes): No Functional Status (Recalled from RN notes): WNL History of Present Illness Provider Complaint: Patient states that he was seen and treated a few weeks ago for the same complaints but didnt take his medication like he was suppose too States he was feeling a little better but now the symptoms has returned States that his ears are hurting and feels full and he gets dizzy at times if he moves or turns too quickly Related Data Previous Rx's ?Medication ?Instructions ?Recorded fluticasone propionate 50 2 spray intranasal DAILY #16 grams 04/05/24 mcg/actuation nasal spray,suspension (Flonase Allergy Relief) meclizine 25 mg tablet 25 mg PO TID PRN dizziness #15 tabs 04/05/24 methylprednisolone 4 mg tablets in See Rx Instructions .Route 04/05/24 a dose pack (Medrol (Shane)) .COMPLEX 6 days #21 tabs Allergies Allergy/AdvReac Type Severity Reaction Status Date / Time No Known Allergies Allergy Verified 09/18/19 16:55 Worker's Comp Is this a Worker's Comp case?: No [facility] Disclaimer: The information contained in this section may have been updated after the patient was seen, as this information can be updated by other users. Surgical History History of appendectomy Social History Smoking Status: Current every day smoker tobacco type: cigarettes packs per day: 1 alcohol intake: never current occupational status: other Travel in the last 8 weeks: None ROS Obtained: Yes All systems reviewed & no additional complaints except as documented and Yes Systems reviewed as appropriate & no additional complaints except as documented Constitutional Constitutional: Reports system reviewed and no additional complaints, except as documented and Reports as per HPI ENT Ears, Nose, Mouth, and Throat: Reports system reviewed and no additional complaints, except as documented, Reports as per HPI, Reports dizziness and Reports otalgia Cardiovascular Cardiovascular: Reports system reviewed and no additional complaints, except as documented and Reports as per HPI Respiratory Respiratory: Reports system reviewed and no additional complaints, except as documented and Reports as per HPI Neurologic Neurologic: Reports dizziness Physical Exam General General appearance: alert and in no apparent distress ENT ENT exam: Present mucous membranes moist Expanded ENT Exam TM/Canal exam: Bilateral TM: bulging (no redness) Respiratory Respiratory exam: Present normal lung sounds bilaterally; Absent respiratory distress or wheezes Cardiovascular Cardiovascular exam: Present regular rate, normal rhythm and normal heart sounds Neurological Exam Neurological exam: Present alert, oriented X3 and normal gait Medical Decision Making Medical Records Screening: Per USPSTF and CDC recommendations, given the prevalence of disease in our region, it is our hospital?s policy to screen for HIV and viral Hepatitis for all patients aged 18 and over and those with ongoing risk factors. Gilbert Inquiry Pt receiving controlled substance: No Gilbert was queried for this patient: No Vital Signs: 04/05/24 09:50 Temperature 98.1 F Temperature Source Oral Pulse Rate [Left Brachial] 60 Respiratory Rate 20 Blood Pressure [Left Arm] 111/75 Blood Pressure Mean [Left Arm] 87 Blood Pressure Source [Left Arm] Automatic Cuff Blood Pressure Position [Left Arm] Sitting 02 Sat by Pulse Oximetry 98 Oxygen Delivery Method Room Air
[2024-04-05 10:11] VITALS: BP 111/75; PULSE 60; RESP 20; TEMP 36.7; O2SAT 98
== END 2024-04-05 10:14 | disposition home or self-care (01) ==
PROVIDERS: Emergency Provider Nurse Practitioner
DX: H69.93 Unspecified Eustachian tube disorder, bilateral (principal); H92.03 Otalgia, bilateral; R42 Dizziness and giddiness
CPT/HCPCS: 99212; G0381

== ENCOUNTER 2024-11-27 15:37 | Emergency (ER) | payer OTHER, SELFPAY ==
--- NOTE | 2024-11-27 15:46 | HMH.EDGENADL ---
Discharge Plan Disposition Patient Disposition: Home, Self-Care Prescriptions Prescriptions: New prednisone 50 mg tablet 50 mg PO DAILY 5 Days Qty: 5 0RF lidocaine 5 % adhesive patch,medicated 1 patch topical DAILY Qty: 30 0RF Rx Instructions: leave on most painful area for up to 12 hrs methocarbamol 750 mg tablet 750 mg PO Q6H PRN (Reason: muscle spasm) Qty: 20 0RF No Action meclizine 25 mg tablet 25 mg PO TID PRN (Reason: dizziness) Qty: 15 0RF fluticasone propionate [Flonase Allergy Relief] 50 mcg/actuation spray,suspension 2 spray intranasal DAILY Qty: 16 0RF Rx Instructions: administer into each nostril daily methylprednisolone [Medrol (Shane)] 4 mg tablets,dose pack See Rx Instructions .Route .COMPLEX 6 Days Qty: 21 0RF Rx Instructions: taper pack; Referrals Follow up/Referrals: Silas Soria DO [Staff Physician, Orthopedics] - See instructions Activity Restrictions/Add. Instructions Additional Instructions/Restrictions: As we discussed I am referring you to orthopedic surgery. Please call to make your appointment. I recommend utilizing the sling for comfort. I have also sent in steroids and a topical numbing medication along with a muscle relaxer. Please utilize Tylenol 1000 mg alternating every 4 hours with 800 mg of Motrin along with ice to the affected area to help control pain and swelling. If you have any persistent new or worsening signs or symptoms follow-up with your PCP return to the ER as needed. Clinical Impressions Clinical Impression: Injury of right shoulder Qualifiers: Encounter type: initial encounter Qualified Code(s): S49.91XA - Unspecified injury of right shoulder and upper arm, initial encounter Stand Alone Forms Stand Alone Forms: Work/School Release Print Language Print Language: Congolese Discharge ED Provider: Eren Ochoa General Adult HPI <JOSE JUAN Gallo - Last Filed: 11/27/24 16:22> General Chief complaint: Extremity Injury, Upper Stated complaint: AO 11/25/24 1730 Right shoulder injury Time Seen by Provider: 11/27/24 15:46 History of Present Illness HPI narrative: Patient presents for a right shoulder injury. Patient was helping a friend several dirt 2 days ago. He was throwing shovel full of dirt over his left shoulder and felt a sharp pain in his right shoulder. Patient is right arm dominant. He has tried ice heat and Tylenol Motrin however the pain is increasing. He denies any loss of sensory or motor but it is very painful to abduct rotate or elevate his arm at the shoulder. He has no neck pain no cervical spine pain. Related Data Previous Rx's ?Medication ?Instructions ?Recorded fluticasone propionate 50 2 spray intranasal DAILY #16 grams 04/05/24 mcg/actuation nasal spray,suspension (Flonase Allergy Relief) meclizine 25 mg tablet 25 mg PO TID PRN dizziness #15 tabs 04/05/24 methylprednisolone 4 mg tablets in See Rx Instructions .Route 04/05/24 a dose pack (Medrol (Shane)) .COMPLEX 6 days #21 tabs lidocaine 5 % topical patch 1 patch topical DAILY #30 ea 11/27/24 methocarbamol 750 mg tablet 750 mg PO Q6H PRN muscle spasm #20 11/27/24 tabs prednisone 50 mg tablet 50 mg PO DAILY 5 days #5 tabs 11/27/24 Allergies Allergy/AdvReac Type Severity Reaction Status Date / Time No Known Allergies Allergy Verified 09/18/19 16:55 [facility] <JOSE JUAN Gallo - Last Filed: 11/27/24 16:22> [facility] Disclaimer: The information contained in this section may have been updated after the patient was seen, as this information can be updated by other users. Surgical History History of appendectomy Social History Smoking Status: Current every day smoker tobacco type: cigarettes packs per day: 1 alcohol intake: never current occupational status: other Travel in the last 8 weeks?: None Have you lived/traveled outside US in past 30 days?: No Contact w/someone who lives/traveled outside US past 30 days?: No Exposure to someone with infectious disease in past 14 days?: No Do you have a fever (greater than 100.4 F or 38 C)?: No Have you tested positive for COVID-19?: No Exposed to someone with COVID-19 in past 14 days?: No Do you have a sore throat?: No Do you have a cough?: No Do you have any weakness?: No Do you have any diarrhea?: No Are you experiencing any unusual bleeding?: No Do you have any muscle aches/pain?: No Do you have any abdominal pain?: No Are you experiencing loss of taste or smell?: No Other Medical History Have you received the Flu Vaccine for this season: No Have you received the Pneumonia Vaccine: No <JOSE JUAN Gallo - Last Filed: 11/27/24 16:22> ROS Obtained: Yes Systems reviewed as appropriate & no additional complaints except as documented Physical Exam <JOSE JUAN Gallo - Last Filed: 11/27/24 16:22> General General appearance: alert and in no apparent distress Respiratory Respiratory exam: Present normal lung sounds bilaterally Cardiovascular Cardiovascular exam: Present regular rate Neurological Exam Neurological exam: Present alert and oriented X3 Medical Decision Making <JOSE JUAN Gallo - Last Filed: 11/27/24 16:22> Medical Records Medical records reviewed: Yes I reviewed the patient's medical records. Screening: Per USPSTF and CDC recommendations, given the prevalence of disease in our region, it is our hospital?s policy to screen for HIV and viral Hepatitis for all patients aged 18 and over and those with ongoing risk factors. Gilbert Inquiry Pt receiving controlled substance: No Vital Signs: 11/27/24 15:52 11/27/24 16:11 Temperature 98.2 F 98.2 F Temperature Source Oral Pulse Rate 80 Pulse Rate [Left Radial] 71 Respiratory Rate 20 20 Blood Pressure 125/78 Blood Pressure [Right Arm] 118/60 Blood Pressure Mean [Right Arm] 79 02 Sat by Pulse Oximetry 96 Oxygen Delivery Method Room Air Room Air Orders (Tests/Meds): ED MEDICATIONS Discontinued Medications Generic Name Dose Route Start Last Admin Trade Name Lucianq PRN Reason Stop Dose Admin Acetaminophen 1,000 mg 11/27/24 15:50 11/27/24 15:59 Acetaminophen 500mg Tab PO 11/27/24 15:51 1,000 mg ONCE ONE Administration Ibuprofen 800 mg 11/27/24 15:50 11/27/24 15:59 Ibuprofen 400 Mg Tablet PO 11/27/24 15:51 800 mg ONCE ONE Administration Lidocaine 1 each 11/27/24 15:50 11/27/24 15:59 Lidocaine 5% Transdermal Patch TD 11/27/24 15:51 1 each ONCE ONE Administration Methocarbamol 500 mg 11/27/24 15:50 11/27/24 15:59 Methocarbamol 500mg Tablet PO 11/27/24 15:51 500 mg ONCE ONE Administration Prednisone 60 mg 11/27/24 15:50 11/27/24 15:59 Prednisone 20mg Tab PO 11/27/24 15:51 60 mg ONCE ONE Administration ORDERS Category Date Time Status Shoulder XR right miminum 2 views [XR shoulder RT min Exams 11/27/24 15:50 Completed 2V] Stat Medical Decision Narrative: In summary patient is a 39-year-old male who presents to the emergency department for evaluation of right shoulder injury. Patient is hemodynamically stable upon arrival, afebrile afebrile. Physical exam is remarkable for tenderness to palpation over the posterior shoulder girdle primarily. He does have some pain anteriorly however is neurovascularly intact distally. Biceps tendon is intact proximally. He has no tenderness at the elbow or the antecubital fossa. He has pain with abduction and external rotation and cannot lift his arm above the level of his shoulder due to the pain. There is no ecchymosis edema palpable bony deformity. He is tender primarily over the area of the infraspinatus teres major subscapularis insertions.. Differential diagnosis includes rotator cuff tear versus possible bony abnormality. Initial workup will be conducted with plain film x-rays. Initial interventions include Tylenol ibuprofen meloxicam Lidoderm patch p.o. prednisone. Initial workup reviewed by me and my informal trepidation of his imaging shows no acute bony abnormality prior to radiology read. Please see final read for formal interpretation.. Given that the likelihood that he has a possible soft tissue/rotator cuff tear I am going to give the patient a sling for comfort refer him to Ortho PDX surgery for further evaluation and management. I will send in prescription for meloxicam Lidoderm patch and a dose of steroids. Patient advised to take Tylenol alternating with ibuprofen along with ice for supportive care. Patient given strict return precautions. <Eren Ochoa MD - Last Filed: 11/27/24 17:42> Vital Signs: 11/27/24 15:52 11/27/24 16:11 Temperature 98.2 F 98.2 F Temperature Source Oral Pulse Rate 80 Pulse Rate [Left Radial] 71 Respiratory Rate 20 20 Blood Pressure 125/78 Blood Pressure [Right Arm] 118/60 Blood Pressure Mean [Right Arm] 79 02 Sat by Pulse Oximetry 96 Oxygen Delivery Method Room Air Room Air Orders (Tests/Meds): ED MEDICATIONS Discontinued Medications Generic Name Dose Route Start Last Admin Trade Name Adelita PRN Reason Stop Dose Admin Acetaminophen 1,000 mg 11/27/24 15:50 11/27/24 15:59 Acetaminophen 500mg Tab PO 11/27/24 15:51 1,000 mg ONCE ONE Administration Ibuprofen 800 mg 11/27/24 15:50 11/27/24 15:59 Ibuprofen 400 Mg Tablet PO 11/27/24 15:51 800 mg ONCE ONE Administration Lidocaine 1 each 11/27/24 15:50 11/27/24 15:59 Lidocaine 5% Transdermal Patch TD 11/27/24 15:51 1 each ONCE ONE Administration Methocarbamol 500 mg 11/27/24 15:50 11/27/24 15:59 Methocarbamol 500mg Tablet PO 11/27/24 15:51 500 mg ONCE ONE Administration Prednisone 60 mg 11/27/24 15:50 11/27/24 15:59 Prednisone 20mg Tab PO 11/27/24 15:51 60 mg ONCE ONE Administration ORDERS Category Date Time Status Shoulder XR right miminum 2 views [XR shoulder RT min Exams 11/27/24 15:50 Completed 2V] Stat Medical Decision Narrative: In summary patient is a 39-year-old male who presents to the emergency department for evaluation of right shoulder injury. Patient is hemodynamically stable upon arrival, afebrile afebrile. Physical exam is remarkable for tenderness to palpation over the posterior shoulder girdle primarily. He does have some pain anteriorly however is neurovascularly intact distally. Biceps tendon is intact proximally. He has no tenderness at the elbow or the antecubital fossa. He has pain with abduction and external rotation and cannot lift his arm above the level of his shoulder due to the pain. There is no ecchymosis edema palpable bony deformity. He is tender primarily over the area of the infraspinatus teres major subscapularis insertions.. Differential diagnosis includes rotator cuff tear versus possible bony abnormality. Initial workup will be conducted with plain film x-rays. Initial interventions include Tylenol ibuprofen meloxicam Lidoderm patch p.o. prednisone. Initial workup reviewed by me and my informal trepidation of his imaging shows no acute bony abnormality prior to radiology read. Please see final read for formal interpretation.. Given that the likelihood that he has a possible soft tissue/rotator cuff tear I am going to give the patient a sling for comfort refer him to Ortho PDX surgery for further evaluation and management. I will send in prescription for meloxicam Lidoderm patch and a dose of steroids. Patient advised to take Tylenol alternating with ibuprofen along with ice for supportive care. Patient given strict return precautions. I was consulted by the ALENA, and we discussed the complexity of the problems being addressed. I approved the treatment and management plan for this patient's care in the emergency department, thus performing a substantive portion of the medical decision making. Eren Ochoa MD Critical Care <JOSE JUAN Gallo - Last Filed: 11/27/24 16:22> Critical Care Time Critical Care Time: No
--- NOTE | 2024-11-27 15:50 | XR_ITS ---
FINAL REPORT CLINICAL HISTORY: Pain after shoveling dirt COMPARISON: 10/08/2018 FINDINGS: RIGHT SHOULDER Three views were obtained. There is no fracture or dislocation. There are minimal hypertrophic changes of the AC joint. Old granulomatous disease is seen in the right upper lobe. No soft tissue abnormality is identified. IMPRESSION: No acute process. Reviewed, Interpreted and Dictated by Javon Cano MD Transcribed by Delmy Mckeon Authenticated and [facility]
[2024-11-27 15:52] VITALS: BP 118/60; PULSE 71; RESP 20; TEMP 36.8; O2SAT 96; BMI 29.1
[2024-11-27] MEDS: ACETAMINOPHEN 500MG TAB 1000 MG PO (15:59)
[2024-11-27] MEDS: LIDOCAINE 5% TRANSDERMAL PATCH 1 EACH TD (15:59)
[2024-11-27] MEDS: METHOCARBAMOL 500MG TABLET 500 MG PO (15:59)
[2024-11-27] MEDS: IBUPROFEN 400 MG TABLET 800 MG PO (15:59)
[2024-11-27] MEDS: predniSONE 20MG TAB 60 MG PO (15:59)
[2024-11-27 16:11] VITALS: BP 125/78; PULSE 80; RESP 20; TEMP 36.8; O2SAT 98
== END 2024-11-27 16:12 | disposition home or self-care (01) ==
PROVIDERS: Emergency Provider Emergency Medicine
DX: S49.91XA Unspecified injury of right shoulder and upper arm, initial encounter (principal); X50.0XXA Overexertion from strenuous movement or load, initial encounter
CPT/HCPCS: 73030; 99283

== ENCOUNTER 2025-05-18 11:35 | Emergency (ER) | payer OTHER, SELFPAY ==
[2025-05-18 11:36] VITALS: BP 171/100; PULSE 98; RESP 18; TEMP 36.7; O2SAT 99; BMI 27.8
--- NOTE | 2025-05-18 11:47 | ED_ITS ---
<Statement entered by Ravinder Magallon MD - 05/18/25 16:26> I was consulted by the ALENA, and we discussed the complexity of problems being addressed. I approved the treatment and management plan for this patient's care in the emergency department, thus performing a substantial portion of the medical decision making. Ravinder Magallon MD Discharge Plan Disposition Patient Disposition: Home, Self-Care Condition: Good Prescriptions Prescriptions: New ketorolac 10 mg tablet 10 mg PO Q6H PRN (Reason: pain) 5 Days Qty: 20 0RF amoxicillin-pot clavulanate 875-125 mg tablet 1 tab PO BID 5 Days Qty: 10 0RF No Action meclizine 25 mg tablet 25 mg PO TID PRN (Reason: dizziness) Qty: 15 0RF fluticasone propionate [Flonase Allergy Relief] 50 mcg/actuation spray,suspension 2 spray intranasal DAILY Qty: 16 0RF Rx Instructions: administer into each nostril daily methylprednisolone [Medrol (Shane)] 4 mg tablets,dose pack See Rx Instructions .Route .COMPLEX 6 Days Qty: 21 0RF Rx Instructions: taper pack; prednisone 50 mg tablet 50 mg PO DAILY 5 Days Qty: 5 0RF lidocaine 5 % adhesive patch,medicated 1 patch topical DAILY Qty: 30 0RF Rx Instructions: leave on most painful area for up to 12 hrs methocarbamol 750 mg tablet 750 mg PO Q6H PRN (Reason: muscle spasm) Qty: 20 0RF Referrals Follow up/Referrals: Provider,Referral, [Referring, Medical] - See instructions Activity Restrictions/Add. Instructions Additional Instructions/Restrictions: Please follow-up with your dentist. If you do not have a current dentist, you may search for dental offices that offer emergency or evening hours. A medication has been sent to your pharmacy for pain control. Please only take this medication every 6 hours as needed. The antibiotic was also sent to your pharmacy. Please take this as directed until gone. Return to the emergency department with any swelling in your mouth, difficulty swallowing, return of pain with high fever, or any other emergent medical complaint or concern. Clinical Impressions Clinical Impression: Dental infection Print Language Print Language: Syriac Discharge ED Provider: Ravinder Magallon General Adult HPI General Stated complaint: tooth pain, left side Time Seen by Provider: 05/18/25 11:50 History of Present Illness HPI narrative: Patient is a 40-year-old male in moderate distress due to pain from a broken wisdom tooth. Patient states that he has quite a few broken tooth and they do not usually bother him, however, for the past 2-3 days he has been having extreme pain from a wisdom tooth on the bottom left. Patient states that he has not been able to sleep for several days and has taken a large amount of Tylenol. Patient states that he has taken 7000 mg of equate brand acetaminophen. Patient states that he began to get slightly dizzy after taking numerous doses so he stopped taking them. Patient's last dose of acetaminophen was at 6 AM today. States he got minimal relief from the medication. Patient denies any fever, other illness, or new diagnosis and denies any other complaints; denies chest pain, shortness of breath, abdominal pain. Related Data Previous Rx's ?Medication ?Instructions ?Recorded fluticasone propionate 50 2 spray intranasal DAILY #16 grams 04/05/24 mcg/actuation nasal spray,suspension (Flonase Allergy Relief) meclizine 25 mg tablet 25 mg PO TID PRN dizziness # 15 tabs 04/05/24 methylprednisolone 4 mg tablets in See Rx Instructions .Route 04/05/24 a dose pack (Medrol (Shane)) .COMPLEX 6 days #21 tabs lidocaine 5 % topical patch 1 patch topical DAILY #30 ea 11/27/24 methocarbamol 750 mg tablet 750 mg PO Q6H PRN muscle s pasm #20 11/27/24 tabs prednisone 50 mg tablet 50 mg PO DAILY 5 days #5 tab s 11/27/24 amoxicillin 875 mg-potassium 1 tab PO BID 5 days #10 t abs 05/18/25 clavulanate 125 mg tablet ketorolac 10 mg tablet 10 mg PO Q6H PRN pain 5 days #20 05/18/25 tabs Allergies Allergy/AdvReac Type Severity Reaction Status Date / Time No Known Allergies Allergy Verified 09/18/19 16:55 [facility] Disclaimer: The information contained in this section may have been updated after the patient was seen, as this information can be updated by other users. Surgical History History of appendectomy Social History Smoking Status: Current every day smoker tobacco type: cigarettes packs per day: 1 alcohol intake: never current occupational status: other Travel in the last 8 weeks?: None Have you lived/traveled outside US in past 30 days?: No Contact w/someone who lives/traveled outside US past 30 days?: No Exposure to someone with infectious disease in past 14 days?: No Do you have a fever (greater than 100.4 F or 38 C)?: No Have you tested positive for COVID-19?: No Exposed to someone with COVID-19 in past 14 days?: No Do you have a sore throat?: No Do you have a cough?: No Do you have any weakness?: No Do you have any diarrhea?: No Are you experiencing any unusual bleeding?: No Do you have any muscle aches/pain?: No Do you have any abdominal pain?: No Are you experiencing loss of taste or smell?: No Other Medical History Have you received the Flu Vaccine for this season: No Have you received the Pneumonia Vaccine: No ROS Obtained: Yes Systems reviewed as appropriate & no additional complaints except as documented Physical Exam General General appearance: alert and in distress Head Head exam: atraumatic and normocephalic Expanded Head Exam Head image: 2 1. Tenderness to palpation Chest Chest inspection: Present normal inspection and symmetric chest wall rise Respiratory Respiratory exam: Present normal lung sounds bilaterally Cardiovascular Cardiovascular exam: Present regular rate and normal rhythm Neurological Exam Neurological exam: Present alert and oriented X3 Psychiatric Psychiatric exam: Present normal affect and anxious Skin Skin exam: Present warm and dry Medical Decision Making Medical Records Screening: Per USPSTF and CDC recommendations, given the prevalence of disease in our region, it is our hospital?s policy to screen for HIV and viral Hepatitis for all patients aged 18 and over and those with ongoing risk factors. Gilbert Inquiry Pt receiving controlled substance: No Lab Data Lab Results 05/18/25 12:15: WBC 10.9 H, RBC 5.04, Hgb 15.6, Hct 44.3, MCV 87.9, MCH 31.0, MCHC 35.2, RDW 12.3, Plt Count 225, MPV 10.2, Neut % (Auto) 75.3, Lymph % (Auto) 14.8, [place] % (Auto) 8.2, Eos % (Auto) 0.9, Baso % (Auto) 0.5, Neut # (Auto) 8.2 H, Lymph # (Auto) 1.6, [place] # (Auto) 0.9, Eos # (Auto) 0.1, Baso # (Auto) 0.1, PT 11.0, INR 0.99, Sodium 140, Potassium 4.1, Chloride 102, Carbon Dioxide 27, [place] 15.1 H, BUN 9, Creatinine 0.80, Estimated Creat Clear 167, Estimated GFR 108, Est GFR ( Amer) 130, Glucose 110 H, Calcium 9.5, Total Bilirubin 0.8, AST 33, ALT 35, Alkaline Phosphatase 85, Total Protein 8.2, Albumin 4.9, G lobulin 3.3 H, Albumin/Globulin Ratio 1.5, Acetaminophen < 10 L 05/18/25 12:15 05/18/25 12:15 Orders (Tests/Meds): ED MEDICATIONS Generic Name Dose Route Start Last Admin Trade Name Freq PRN Reason Stop Dose Admin Benzocaine/Butamben/Tetracaine HCl 1 gm 05/18/25 12:07 05/18/25 12:26 Tetracaine/Benzocaine/Butamben 56 Gm [place] TP 06/17/25 12:06 1 gm NEEDED PRN Administration Mouth Irritation Ceftriaxone Sodium 2 gm/ 50 mls @ 100 mls/hr 05/18/25 12:00 05/18/25 12:26 Sodium Chloride IV 05/28/25 11:59 100 mls/hr Q24H KAREN Administration Sodium Chloride 10 ml 05/18/25 11:42 Sodium Chloride 0.9% 10ml Flush Syringe IV 06/17/25 11:41 NEEDED PRN Maintain IV Site Discontinued Medications Generic Name Dose Route Start Last Admin Trade Name Freq PRN Reason Stop Dose Admin Ketorolac Tromethamine 30 mg 05/18/25 11:42 05/18/25 12:30 Ketorolac 30mg/Ml Vial IV 05/18/25 11:43 30 mg ONCE ONE Administration Lidocaine HCl 15 ml 05/18/25 12:07 05/18/25 12:26 Lidocaine 2% Viscous Debora 15ml Udc PO 05/18/25 12:08 15 ml ONCE ONE Administration ORDERS Category Date Time Status Acetaminophen Stat Lab 05/18/25 12:15 Completed CBC w/Auto Diff [Complete Blood Count Auto Diff] Stat Lab 05/18/25 12:15 Completed CMP [Comprehensive Metabolic Panel] Stat Lab 05/18/25 12:15 Completed PT INR [Prothrombin Time INR] Stat Lab 05/18/25 12:15 Completed Medical Decision Narrative: In summary patient is an 40-year-old male who presents to the emergency department for evaluation of dental pain and infection. Patient is hemodynamically stable upon arrival, afebrile. Patient has pain with palpation along left rear mandible; otherwise unremarkable exam. Differential diagnosis includes abscess, dental infection, TMJ. Initial workup will be conducted with labs. Initial interventions include IV ketorolac and IV ceftriaxone. Initial workup reviewed by me showed generally unremarkable labs with no significant electrolyte derangement, kidney injury, or transaminitis on CMP, no significant leukocytosis or anemia on CBC, and acetaminophen level less than 10. Upon repeat evaluation patient's exam was improved due to pain management during ED course. Poison control consulted due to patient stating that he has taken 7 g of acetaminophen in the past 2 days. Patient's labs were reviewed with poison control and they closed the case and stated that the patient was stable for discharge from their perspective. Given this, patient is stable for discharge at this time. Plan of care is to patient to be discharged home to follow-up with primary care and a dental provider. Patient verbalized understanding of and is amenable to this plan. Return precautions discussed and discharge instructions. Imaging and EKG considered but not clinically indicated at this time due to the patient's complaint and presentation. Critical Care Critical Care Time Critical Care Time: No
[2025-05-18 12:05] VITALS: BMI 28.5
[2025-05-18 12:26] LABS: Hematocrit 44.3 % (42.0-52.0); Hemoglobin 15.6 g/dL (14.1-18.0); Immature Granulocytes % 0.3 %; Mean Corpuscular HGB Conc 35.2 g/dL (31.8-35.4); Mean Corpuscular Hemoglobin 31.0 pg (27.0-31.2); Mean Corpuscular Volume 87.9 fl (80-94); Nucleated Red Blood Cells % 0 %; Platelet Count 225 K/mm3 (142-424); Red Blood Count 5.04 M/mm3 (4.60-6.20); Red Cell Distribution Width-SD 39.6 fL; White Blood Count 10.9 K/mm3 (4.8-10.8)
[2025-05-18] MEDS: LIDOCAINE 2% VISCOUS SOL 15ML UDC 15 ML PO (12:26)
[2025-05-18] MEDS: TETRACAINE/BENZOCAINE/BUTAMBEN 56 GM SPRAY TP (12:26)
[2025-05-18] MEDS: KETOROLAC 30MG/ML VIAL 30 MG IV (12:30)
[2025-05-18 12:35] LABS: Acetaminophen < 10 ug/ml (10-30); Alanine Aminotransferase 35 U/L (12-78); Albumin Level 4.9 g/dl (3.5-5.0); Albumin/Globulin Ratio 1.5 (1.1-1.8); Alkaline Phosphatase 85 U/L (38-126); Anion Gap 15.1 mEq/L (5-15); Aspartate Amino Transferase 33 U/L (17-59); Bilirubin,Total 0.8 mg/dl (0.2-1.3); Blood Urea Nitrogen 9 mg/dl (9-20); Calcium 9.5 mg/dl (8.4-10.2); Carbon Dioxide 27 mmol/L (22.0-30.0); Chloride 102 mmol/L (98-107); Creatinine Clearance Estimated 167 mL/min (50-200); Creatinine,Serum 0.80 mg/dl (0.66-1.25); Estimated Glomerular Filt Rate 108 ml/min (>60); GFR (African American) 130 ML/MIN (>60); Globulin 3.3 g/dL (1.3-3.2); Glucose 110 mg/dl (74-100); Potassium 4.1 mmoL/L (3.5-5.1); Sodium 140 mmol/L (136-145); Total Protein,Serum 8.2 g/dl (6.3-8.2)
[2025-05-18 12:39] LABS: INR 0.99 (0.9-1.1); Prothrombin Time 11.0 seconds (10.1-12.5)
[2025-05-18 13:30] VITALS: BP 142/84; PULSE 74; RESP 18; TEMP 36.9; O2SAT 99
[2025-05-18 14:44] LABS: Hepatitis C Ab Qual. W/ RFX NEGATIVE (Negative)
== END 2025-05-18 13:40 | disposition home or self-care (01) ==
PROVIDERS: Physician Assistant; Emergency Provider Emergency Medicine; PCP Internal Medicine Adolescent Medicine
DX: K08.89 Other specified disorders of teeth and supporting structures (principal); R42 Dizziness and giddiness; F17.210 Nicotine dependence, cigarettes, uncomplicated
CPT/HCPCS: 80053; 80329; 85025; 85610; 86803; 87389; 96365; 96366; 96375; 99284; J0696; J1885